=== PATIENT | female | born 1995 | race Caucasian/White ===

== ENCOUNTER 2018-06-27 14:27 | Emergency (ER) | payer SELFPAY ==
[2018-06-27] MEDS ORDERED: LACTATED RINGERS 1,000 ML IVS ONE (16:31)
--- NOTE | 2018-06-27 16:35 | ED.PDOC ---
History of Present Illness - General Chief Complaint: Abdominal Pain Stated Complaint: Abdominal Pain Time Seen by Provider: 06/27/18 16:21 Information Source: patient Exam Limitations: no limitations - History of Present Illness Initial Comments: Tatiana Samayoa22 y/o female came to ER with sharp and cramplike abdominal pain the last 4 days stating getting worse and had 2 episodes of vomiting prior to coming here.Able to eat her regular meal,no diarrhea ,no constipation,no dysuria,no hematuria ,no hematemesis or melena. Abdominal Pain Onset Location: generalized abdomen Pain Radiation: no radiation Quality: moderate, cramping, sharpness Timing/Duration: other - 4 daysago Improving Factors: nothing Worsening Factors: nothing Associated Symptoms: other - see hpi Review of Systems - Review of Systems Constitutional: States: no symptoms reported EENTM: States: no symptoms reported Respiratory: States: no symptoms reported Cardiology: States: no symptoms reported Gastrointestinal/Abdominal: States: see HPI Genitourinary: States: no symptoms reported All other Systems: Reviewed and Negative, No Change from Baseline Past Medical History (General) - Patient Medical History Hx Seizures: No Hx Stroke: No Hx Dementia: No Hx Asthma: No Hx of COPD: No Hx Cardiac Disorders: No Hx Congestive Heart Failure: No Hx Pacemaker: No Hx Hypertension: No Hx Thyroid Disease: Yes Hx Diabetes: No Hx Gastroesophageal Reflux: No Hx Renal Disease: No Hx Cancer: No Hx of HIV: No Hx Hepatitis C: No Hx MRSA: No Surgical History: no surgical history - Vaccination History Immunizations Comment: Unknown - Social History Hx Tobacco Use: No Hx Chewing Tobacco Use: No Hx Alcohol Use: Yes - Not in a long time, socially Hx Substance Use: No Hx Substance Use Treatment: No Hx Depression: No Feels Threatened In Home Enviroment: No Feels Threatened In a Relationship: No Hx Physical Abuse: No Hx Emotional Abuse: No Hx Suspected Abuse: No - Female History Patient is a Female of Child Bearing Age (10 -59 yrs old): Yes Hx Last Menstrual Period: 05/29/18 Patient : No - Triage Comment ED Triage Comment: Patient c/o abd pain 8/10, tender to touch, unable to wear clothes across abdomen or sit up straight. Family Medical History - Family History Sister Hx Family;Other: Hypothyroidism Physical Exam - Physical Exam General Appearance: Alert, Comfortable, No apparent distress Eyes, Ears, Nose, Throat Exam: normal ENT inspection, pharynx normal Neck: non-tender, full range of motion, supple, normal inspection Respiratory: chest non-tender, lungs clear, normal breath sounds, no respiratory distress Cardiovascular/Chest: normal peripheral pulses, regular rate, rhythm, no murmur Peripheral Pulses: No deficit Gastrointestinal/Abdominal: normal bowel sounds, soft, no organomegaly, tenderness - all over no peritoneal signs Extremity: no pedal edema, no calf tenderness Neurologic: alert, oriented x 3 Skin Exam: normal color, warm/dry Progress - Progress Progress: 06/27/18 16:38 Vital Signs - 8 hr 06/27/18 06/27/18 06/27/18 14:52 15:05 15:34 Temperature 98.8 F Pulse Rate [ 91 H 76 81 Left Radial] Respiratory 20 20 18 Rate Blood Pressure 129/88 130/75 [Left Arm] O2 Sat by Pulse 99 97 Oximetry - Results/Orders Results/Orders: 06/27/18 15:34 Urine Culture Stat 06/27/18 16:32 Hold Metformin x 48Hrs [id number] Laboratory Results - last 24 hr 06/27/18 06/27/18 06/27/18 15:31 15:34 16:40 WBC 12.0 H RBC 4.96 Hgb 14.9 Hct 44.1 MCV 88.9 MCH 30.0 MCHC 33.8 RDW 13.9 Plt Count 237 MPV 8.6 Absolute Neuts (auto) 8.80 H Absolute Lymphs (auto) 2.20 Absolute Monos (auto) 0.80 Absolute Eos (auto) 0.10 Absolute Basos (auto) 0.10 Neutrophils % 73.8 Lymphocytes % 18.2 L Monocytes % 6.4 Eosinophils % 0.7 L Basophils % 0.9 Sodium Potassium Chloride Carbon Dioxide Anion Gap BUN Creatinine BUN/Creatinine Ratio Random Glucose Serum Osmolality Calcium Total Bilirubin AST ALT Alkaline Phosphatase Serum Total Protein Albumin Globulin Albumin/Globulin Ratio Lipase Urine Color Yellow Urine Appearance Sl cloudy Urine pH 6.0 Ur Specific [place] >= 1.030 Urine Protein Negative Urine Glucose (UA) Negative Urine Ketones Negative Urine Blood Negative Urine Nitrite Positive H Urine Bilirubin Negative Urine Urobilinogen 0.2 Ur Leukocyte Esterase Negative Urine RBC 0 Urine WBC 0-1 Ur Epithelial Cells 1-3 Urine Bacteria 3+ H Urine HCG, Qual Negative 06/27/18 16:40 WBC RBC Hgb Hct MCV MCH MCHC RDW Plt Count MPV Absolute Neuts (auto) Absolute Lymphs (auto) Absolute Monos (auto) Absolute Eos (auto) Absolute Basos (auto) Neutrophils % Lymphocytes % Monocytes % Eosinophils % Basophils % Sodium 137 Potassium 3.6 Chloride 104 Carbon Dioxide 25 Anion Gap 11.6 L BUN 17 Creatinine 0.52 L BUN/Creatinine Ratio 32.7 H Random Glucose 91 Serum Osmolality 274.9 L Calcium 9.6 Total Bilirubin 0.6 AST 21 ALT 19 Alkaline Phosphatase 81 Serum Total Protein 8.1 Albumin 4.5 Globulin 3.6 H Albumin/Globulin Ratio 1.3 Lipase 26 Urine Color Urine Appearance Urine pH Ur Specific [place] Urine Protein Urine Glucose (UA) Urine Ketones Urine Blood Urine Nitrite Urine Bilirubin Urine Urobilinogen Ur Leukocyte Esterase Urine RBC Urine WBC Ur Epithelial Cells Urine Bacteria Urine HCG, Qual Discuss all test results with patient - EKG/XRAY/CT CT Ordered: Yes - abd/p-no acute intraabdominal abnormalities Departure - Departure Clinical Impression: Abdominal pain Qualifiers: Abdominal location: unspecified location Qualified Code(s): R10.9 - Unspecified abdominal pain Time of Disposition: 18:02 Disposition: Discharge to Home or Self Care Condition: Good Departure Forms: ED Discharge - Pt. Copy, Patient Portal Self Enrollment Instructions: DI for Abdominal Pain-Adult, [place] Diet Diet: bland diet, other - AVOID GREASY SPICY FOODS UNTIL BETTER Additional Instructions: May take over the counter Maalox or Mylanta Gas, and Ranitidine read package for dosage and directions;Follow up with primary MD 01 Jul 2018 for recheck as needed
--- NOTE | 2018-06-27 17:52 | CT ---
EXAM: Abdomen/Pelvis w/Contrast CLINICAL INDICATION: Abdominal pain. COMPARISON: There is no previous study for comparison. TECHNIQUE: The CT scan was done using contiguous axial 5 mm postcontrast sections through the abdomen and pelvis including IV contrast. This exam was performed according to our departmental dose-optimization program, which includes automated exposure control, adjustment of the mA and/or kV according to patient size and/or use of iterative reconstruction technique. FINDINGS: The visualized portions of the lung bases are clear. The liver, gallbladder, kidneys, adrenal glands, spleen, and pancreas have a normal CT appearance. The appendix is normal. There are no dilated loops of small bowel. No free air, free fluid, or abscess is identified. IMPRESSION: No evidence of an acute intra-abdominal process. Electronically signed by: Howard Hallman MD 06/27/2018 5:49 PM CDT
[2018-06-27 18:32] VITALS: BP 133/83; TEMP 98.3; O2SAT 100
== END 2018-06-27 18:29 | disposition home or self-care (01) ==
LOC: ER 14:27
DX: R10.84 Generalized abdominal pain (principal); R11.10 Vomiting, unspecified; E07.9 Disorder of thyroid, unspecified
CPT/HCPCS: 74177; 80053; 81001; 81025; 83690; 85025; 87077; 87086; 87186; J7120

== ENCOUNTER 2019-03-18 15:52 | Emergency (ER) | payer MEDICAID ==
[2019-03-18] MEDS ORDERED: ONDANSETRON INJ 4 MG/2 ML VIAL IV ONE (16:04)
--- NOTE | 2019-03-18 16:08 | ED.PDOC ---
History of Present Illness - General Stated Complaint: vomiting and headches since fall Time Seen by Provider: 03/18/19 16:01 Source: patient, RN notes reviewed, Vital Signs reviewed, family Exam Limitations: no limitations - History of Present Illness Initial Comments: 23 year old female that presents to the ER with severe headache, vomiting. Patient stated that symptoms began after thanksgiving. Patient was inebriated and fell and hit her head. Patient stated that ever since the fall she has had headache, nausea, vomiting. Patient arrived POV, able to ambulate with a steady gait patient admits cigarettes, alcohol and THC Allergies/Adverse Reactions: Allergies NO KNOWN ALLERGY Allergy (Verified 06/27/18 15:00) Home Medications: Ambulatory Orders Carisoprodol [Soma] 250 mg PO TID #10 tab 09/07/18 Indomethacin [Indocin] 50 mg [place] TID #20 sup 09/07/18 Ondansetron Tab [Zofran Tab] 4 mg PO Q6HR 4 Days #20 tab 03/18/19 Review of Systems - Review of Systems Constitutional: States: no symptoms reported EENTM: States: no symptoms reported Respiratory: States: no symptoms reported Cardiology: States: no symptoms reported Gastrointestinal/Abdominal: States: nausea, vomiting Genitourinary: States: no symptoms reported Musculoskeletal: States: no symptoms reported Skin: States: no symptoms reported Neurological: States: headache. Denies: see HPI, anxiety, depressed, emotional problems, numbness, paresthesia, pre-existing deficit, tingling, tremors, weakness Endocrine: States: no symptoms reported Hematologic/Lymphatic: States: no symptoms reported Past Medical History (General) - Patient Medical History Hx Seizures: No Hx Stroke: No Hx Dementia: No Hx Asthma: No Hx of COPD: No Hx Cardiac Disorders: No Hx Congestive Heart Failure: No Hx Pacemaker: No Hx Hypertension: No Hx Thyroid Disease: No Hx Diabetes: No Hx Gastroesophageal Reflux: No Hx Renal Disease: No Hx Cancer: No Hx of HIV: No Hx Hepatitis C: No Hx MRSA: No - Social History Hx Tobacco Use: No Hx Chewing Tobacco Use: No Hx Alcohol Use: Yes - Not in a long time, socially Hx Substance Use: No Hx Substance Use Treatment: No Hx Depression: No Hx Physical Abuse: No Hx Emotional Abuse: No Hx Suspected Abuse: No - Female History Hx Last Menstrual Period: 05/29/18 Patient : No Family Medical History - Family History Sister Family History: No Known Hx Family;Other: Hypothyroidism Physical Exam - Physical Exam General Appearance: Alert Head Injury: no evidence of injury Eye Exam: bilateral normal ENT Exam: hearing grossly normal, no evidence of ENT injury, no dental injury Neck Exam: non-tender, full range of motion, normal alignment, normal inspection Cardiovascular/Respiratory: regular rate, rhythm, no M/R/G, normal peripheral pulses, no JVD, normal breath sounds Gastrointestinal/Abdominal: normal bowel sounds, non tender, soft, no organomegaly, no pulsatile mass Back Exam: normal inspection Extremity: normal range of motion, non-tender, normal inspection, no pedal edema Mental Status: alert, oriented x 3 clerk travel reservations Exam: normal hearing, normal speech, PERRL Motor/Sensory: no motor deficit, no sensory deficit, negative Babinski's sign Skin Exam: normal color, warm/dry Lymphatic: no adenopathy - [place] Coma Score Best Eye Response ([place]): (4) open spontaneously Best Verbal Response ([place]): (5) oriented Best Motor Response ([place]): (6) obeys commands [place] Total: 15 Progress - Progress Progress: 03/18/19 16:10 this is a young patient that presents with headaches, after a fall . this happened several days ago, i dont suspect a subdural or epidural hematoma since patietn has very minimal neurological deficits so I suspect concussion, but patient is concerned so a Head CT will be ordered 03/18/19 16:[address] was negative. Patient will be discharge home with zofran and post concussive syndrome instructions Departure - Departure Clinical Impression: Concussion Qualifiers: Encounter type: initial encounter Loss of consciousness presence/duration: without LOC Qualified Code(s): S06.0X0A - Concussion without loss of consciousness, initial encounter Vomiting Qualifiers: Vomiting type: unspecified Vomiting Intractability: non-intractable Nausea presence: with nausea Qualified Code(s): R11.2 - Nausea with vomiting, unspecified Disposition: Discharge to Home or Self Care Instructions: DI for Concussion, DI for Closed Head Injury, Nausea and Vomiting, Adult Diet: full liquid diet, other - avoid another head trauma Prescriptions: Ondansetron Tab [Zofran Tab] 4 mg PO Q6HR 4 Days #20 tab Home Medications: Ambulatory Orders Carisoprodol [Soma] 250 mg PO TID #10 tab 09/07/18 Indomethacin [Indocin] 50 mg NJ TID #20 sup 09/07/18 Ondansetron Tab [Zofran Tab] 4 mg PO Q6HR 4 Days #20 tab 03/18/19
--- NOTE | 2019-03-18 16:50 | CT ---
EXAM DESCRIPTION: Head CLINICAL HISTORY: 23 years Female, fall/headachea and vomiting COMPARISON: None. TECHNIQUE: Axial images obtained from the skull base to the vertex without intravenous contrast with images. Coronal and sagittal reformations provided. This exam was performed according to our departmental dose-optimization program, which includes automated exposure control, adjustment of the mA and/or kV according to patient size and/or use of iterative reconstruction technique. Time Last Seen Well (If known) for Code Stroke: n/a FINDINGS: Brain Parenchyma, ventricles, meninges, and extra-axial spaces: Normal ventricles and sulci. Normal attenuation of brain parenchyma. No acute intracranial hemorrhage. No abnormal extra-axial fluid collection. Vascular: Normal. Calvarium, paranasal sinuses, mastoids, and orbits: Calvarium intact. Mild mucosal thickening in the right ethmoid sinus. Remaining paranasal sinuses and mastoids are clear. Orbits unremarkable. IMPRESSION: 1. No acute intracranial abnormality. 2. Mild right ethmoid sinus disease. Electronically signed by: Denny Cortes MD 03/18/2019 4:48 PM [facility]
[2019-03-18] MEDS ORDERED: KETOROLAC TROMETHAMINE INJ 30 MG/ML VIAL IV ONE (16:55)
[2019-03-18] MEDS ORDERED: KETOROLAC TROMETHAMINE INJ 30 MG/ML VIAL IM ONE (17:04)
[2019-03-18 17:16] VITALS: BP 123/77; TEMP 96.8; O2SAT 99
== END 2019-03-18 17:16 | disposition home or self-care (01) ==
LOC: ER 15:52
DX: S06.0X0A Concussion without loss of consciousness, initial encounter (principal); R11.2 Nausea with vomiting, unspecified; F17.210 Nicotine dependence, cigarettes, uncomplicated; W19.XXXA Unspecified fall, initial encounter; Y92.9 Unspecified place or not applicable
CPT/HCPCS: 70450; J1885; J2405

== ENCOUNTER 2019-04-14 12:04 | Emergency (ER) | payer MEDICAID ==
[2019-04-14] MEDS ORDERED: PROMETHAZINE HCL INJ 25 MG/ML VIAL IM ONE (12:32)
[2019-04-14] MEDS ORDERED: SODIUM CHLORIDE 0.9% (FLUSH) 10 ML SYG IV PRN (12:32)
[2019-04-14] MEDS ORDERED: SODIUM CHLORIDE 0.9% 1000ML 1,000 ML IVS ONE (12:33)
--- NOTE | 2019-04-14 12:35 | ED.PDOC ---
History of Present Illness - General Chief Complaint: GI Problem Time Seen by Provider: 04/14/19 12:31 Information Source: patient Additional Information: The patient is a 23 year old with no significant past medical history who presents with vomiting and abdominal pain. Yesterday morning woke with vomiting, no recent travel, new foods, or known sick contacts. She denies fever and diarrhea. A friend suggested she take a test which was positive. LMP was 6 weeks ago. No vaginal bleeding or discharge. She developed right upper quadrant pain only with vomiting. No changes with food, position or exertion. No other complaints at this time. - History of Present Illness Abdominal Pain Onset Location: RUQ Pain Radiation: no radiation Quality: moderate Timing/Duration: intermittent - only with vomiting Improving Factors: other - vomiting Worsening Factors: nothing Associated Symptoms: nausea/vomiting Review of Systems - Review of Systems Constitutional: Denies: chills, fever EENTM: States: no symptoms reported Respiratory: Denies: cough, short of breath Cardiology: Denies: chest pain, palpitations Gastrointestinal/Abdominal: States: abdominal pain, nausea, vomiting Genitourinary: Denies: discharge, dysuria, frequency, hematuria Musculoskeletal: States: no symptoms reported Skin: States: no symptoms reported All other Systems: Reviewed and Negative Past Medical History (General) - Patient Medical History Hx Seizures: No Hx Stroke: No Hx Dementia: No Hx Asthma: No Hx of COPD: No Hx Cardiac Disorders: No Hx Congestive Heart Failure: No Hx Pacemaker: No Hx Hypertension: No Hx Thyroid Disease: Yes Hx Diabetes: No Hx Gastroesophageal Reflux: No Hx Renal Disease: No Hx Cancer: No Hx of HIV: No Hx Hepatitis C: No Hx MRSA: No Surgical History: no surgical history - Vaccination History Hx Influenza Vaccination: No - Social History Hx Tobacco Use: No Hx Chewing Tobacco Use: No Hx Alcohol Use: Yes - Not in a long time, socially Hx Substance Use: Yes - daily marijuanna Hx Substance Use Treatment: No Hx Depression: No Hx Physical Abuse: No Hx Emotional Abuse: No Hx Suspected Abuse: No - Female History Hx Last Menstrual Period: 05/29/18 Patient : Yes Family Medical History - Family History Sister Family History: No Known Hx Family;Other: Hypothyroidism Physical Exam - Physical Exam General Appearance: Comfortable, No apparent distress Eyes, Ears, Nose, Throat Exam: normal ENT inspection Respiratory: no respiratory distress Gastrointestinal/Abdominal: normal bowel sounds, non tender, soft, no organomegaly, other - bedside ultrasound shows no hyperechoic gallstones. There is no free fluid in the pelvis. There is evidence for early IUP. Neurologic: alert, oriented x 3 Progress - Progress Progress: 04/14/19 12:36 Patient with RUQ and right flank pain only with vomiting, suggestive of msk pain. She does not have any rebound or guarding. No change with food or position. Bedside ultrasound does not show any shadowing gallstones or free fluid in the pelvis. She does not have any lower abdominal tenderness. There is evidence for early IUP on bedside ultrasound. Doubt ectopic 04/14/19 13:47 Patient reassessed, she is feeling better. No abdominal pain, repeat exam is normal at this time. Low concern for ectopic . Will continue outpatient symptomatic management, tylenol/phenergan. She will schedule outpatient follow up with her OB-Specialist Field Engineer. Home care instructions and return indications reviewed. MDM: Patient presents with abdominal pain and vomiting. Pain only with vomiting is suggestive of MSK pain, abdominal exam is benign. Labs normal. No free fluid or evidence for GB pathology on bedside sono. Symptoms improved in ED and tolerating PO. Will continue outpatient monitoring and symptomatic care, she will follow up with her OB-Specialist Field Engineer. - Results/Orders Results/Orders: 04/14/19 12:32 IV Care:Saline Lock per Protoc QSHIFT Sodium Chloride 0.9% (Flush) [Saline Flush Syringe] 10 ml IV PRN PRN 04/14/19 12:45 Urine Culture Stat Laboratory Results - last 24 hr 04/14/19 04/14/19 04/14/19 12:40 12:40 12:45 WBC 11.6 H RBC 5.01 Hgb 15.2 Hct 44.9 MCV 89.6 MCH 30.4 MCHC 34.0 RDW 13.5 Plt Count 220 MPV 7.9 Absolute Neuts (auto) 9.20 H Absolute Lymphs (auto) 1.60 Absolute Monos (auto) 0.60 Absolute Eos (auto) 0.10 Absolute Basos (auto) 0.10 Neutrophils % 79.3 H Lymphocytes % 14.0 L Monocytes % 5.5 Eosinophils % 0.7 L Basophils % 0.5 Sodium 133 L Potassium 3.6 Chloride 104 Carbon Dioxide 19 L Anion Gap 13.6 BUN 12 Creatinine 0.46 L BUN/Creatinine Ratio 26.1 H Random Glucose 104 Serum Osmolality 266.4 L Calcium 9.5 Total Bilirubin 1.0 Direct Bilirubin 0.2 Indirect Bilirubin 0.8 AST 21 ALT 23 Alkaline Phosphatase 65 Serum Total Protein 7.9 Albumin 4.1 Lipase 30 Beta HCG, Quant 59743.0 H Urine Color Yellow Urine Appearance Cloudy Urine pH 7.0 Ur Specific [place] 1.025 Urine Protein Negative Urine Glucose (UA) Negative Urine Ketones Trace Urine Blood Negative Urine Nitrite Negative Urine Bilirubin Negative Urine Urobilinogen 0.2 Ur Leukocyte Esterase Small H Urine RBC 0 Urine WBC 3-5 H Ur Epithelial Cells 10-20 Urine Bacteria 2+ H Urine Mucus Moderate Departure - Departure Clinical Impression: Nausea and vomiting during Time of Disposition: 13:50 Disposition: Discharge to Home or Self Care Condition: Fair Departure Forms: ED Discharge - Pt. Copy, Patient Portal Self Enrollment Instructions: Nausea and Vomiting of (DC) Diet: resume usual diet Activity: increase activity as tolerated Prescriptions: Promethazine Tab [Phenergan Tablet] 25 mg PO Q6H PRN #20 tab PRN Reason: Nausea Home Medications: Ambulatory Orders Carisoprodol [Soma] 250 mg PO TID #10 tab 09/07/18 Indomethacin [Indocin] 50 mg [place] TID #20 sup 09/07/18 Ondansetron Tab [Zofran Tab] 4 mg PO Q6HR 4 Days #20 tab 03/18/19 Promethazine Tab [Phenergan Tablet] 25 mg PO Q6H PRN #20 tab 04/14/19
[2019-04-14 14:00] VITALS: O2SAT 98
[2019-04-14 14:10] VITALS: BP 125/80; TEMP 98.5
== END 2019-04-14 14:07 | disposition home or self-care (01) ==
LOC: ER 12:04
DX: O21.9 Vomiting of pregnancy, unspecified (principal); O99.281 Endocrine, nutritional and metabolic diseases complicating pregnancy, first trimester; E07.9 Disorder of thyroid, unspecified; Z3A.00 Weeks of gestation of pregnancy not specified
CPT/HCPCS: 80048; 80076; 81001; 83690; 84702; 85025; 87086; J2550; J7030

== ENCOUNTER → 2019-06-01 | Emergency (ER) | payer MEDICAID | LOC: ER 19:47 | DX: R11.2 Nausea with vomiting, unspecified (principal); Z53.21 Procedure and treatment not carried out due to patient leaving prior to being seen by health care provider ==